=== PATIENT | female | born 1935 | race Caucasian/White ===

== ENCOUNTER 2021-06-15 17:17 | Emergency (ER) | payer SELFPAY ==
[2021-06-15] MEDS ORDERED: Calcium Chloride 1 GM/10 ML Abboject SYRINGE ONE (17:32)
[2021-06-15] MEDS ORDERED: Sodium Bicarb 50 MEQ/50 ML Abboject 8.4% SYRINGE ONE (17:32)
[2021-06-15] MEDS ORDERED: Atropine Sulfate 1 mg/10 ml Syringe ONE (17:32)
[2021-06-15] MEDS ORDERED: EPINEPHrine 1 MG/10 ML Abboject SYRINGE ONE (17:32)
[2021-06-15 17:40] LABS: #Basophils 0.1 thou/uL (0.0-0.2); #Eosinphils 0.1 thou/uL (0.0-0.7); #Lymphocytes 4.8 thou/uL (1.20-3.40); #Monocytes 0.3 thou/uL (0.11-0.59); #Neutrophils 4.9 thou/uL (1.40-6.50); %Basophils 0.8 % (0.0-1.0); %Eosinophils 0.7 % (0.0-10.0); %Lymphocytes 47.6 % (21.0-51.0); %Monocytes 2.4 % (0.0-10.0); %Neutrophils 48.4 % (42.0-75.0); Hemoglobin 7.9 g/dL (12.0-16.0); Mean Corpuscular HGB CONC 30.5 g/dL (32.0-36.0); Mean Corpuscular Volume 98.6 fL (78.0-98.0); Mean Platelet Volume 7.9 fL (7.4-10.4); Platelet Count 160 thou/uL (130-400); RBC Distribution Width 11.3 % (11.5-14.5); Red Blood Cell (RBC) Count 2.63 mill/uL (4.20-5.40)
[2021-06-15 17:56] LABS: ALT (SGPT) 41 U/L (8-55); AST (SGOT) 61 U/L (5-34); Albumin 2.5 g/dL (3.5-5.0); Alkaline Phosphatase 86 U/L (40-110); Anion Gap 17 mmol/L (10-20); BUN (Urea Nitrogen) 39 mg/dL (7.0-18.7); Bilirubin, Total 0.3 mg/dL (0.2-1.2); Calc. Creatinine Clearance 0 mL/min (70-130); Calcium 7.9 mg/dL (7.8-10.44); Carbon Dioxide 12 mmol/L (22-29); Chloride 115 mmol/L (98-107); Globulin 2.5 g/dL (2.4-3.5); Glucose 124 mg/dL (70-105); Potassium 4.6 mmol/L (3.5-5.1); Sodium 139 mmol/L (136-145)
[2021-06-15 17:59] LABS: INR-International Normal Ratio 2.1; Prothrombin Time 24.4 sec (12.0-14.7)
== END 2021-06-15 17:45 | disposition expired ==
LOC: ERS 17:17 → EDBD 17:17 → ERS 17:45
DX: S82.292A Other fracture of shaft of left tibia, initial encounter for closed fracture (principal); S82.291A Other fracture of shaft of right tibia, initial encounter for closed fracture; S82.492A Other fracture of shaft of left fibula, initial encounter for closed fracture; S82.491A Other fracture of shaft of right fibula, initial encounter for closed fracture; I46.9 Cardiac arrest, cause unspecified; R41.82 Altered mental status, unspecified; Z79.899 Other long term (current) drug therapy; V89.2XXA Person injured in unspecified motor-vehicle accident, traffic, initial encounter
CPT/HCPCS: 36415; 36430; 36556; 71045; 80053; 83605; 85025; 85610; 85730; 86850; 86900; 86901; 94002; 96374; 96375; G0390; J0171; J0461; P9016